=== PATIENT | female | born 1990 | race Caucasian/White ===

== ENCOUNTER → 2019-04-07 | Outpatient (CLI) | payer MEDICAID ==
--- NOTE | 2019-04-07 13:34 | US ---
EXAMINATION TYPE: US transvaginal DATE OF EXAM: 04/07/2019 COMPARISON: NONE CLINICAL HISTORY: N83.20 Unspecified ovarian cysts. Pt states pelvic pain x 3 days TECHNIQUE: Transvaginal (TV). Transvaginal sonographic images of the pelvis were acquired. Date of LMP: 03/17/2019 EXAM MEASUREMENTS: Uterus: 8.2 x 3.1 x 4.9 cm Endometrial Stripe: 0.5 cm Right Ovary: 2.6 x 2.2 x 1.8 cm Left Ovary: 3.0 x 2.8 x 2.4 cm 1. Uterus: Anteverted wnl 2. Endometrium: wnl 3. Right Ovary: wnl 4. Left Ovary: small cyst= 1.7 x 1.5 x 1.6 cm 5. Bilateral Adnexa: wnl 6. Posterior cul-de-sac: wnl IMPRESSION: Left ovarian cyst may be functional in nature. Consider follow-up study in 6 weeks.
== END | disposition home or self-care (01) ==
LOC: RADUSWWP 12:55
PROVIDERS: ATTEND Obstetrics & Gynecology
DX: N83.202 Unspecified ovarian cyst, left side (principal)
CPT/HCPCS: 76830

== ENCOUNTER → 2021-03-27 | Outpatient (CLI) | payer MEDICAID ==
[2021-03-27 16:53] LABS: Chol/HDL Ratio 2.56 Ratio; LDL Cholesterol,Calculated 82.1 mg/dL (0.0-131.0)
== END | disposition home or self-care (01) ==
LOC: LABWHC1 09:45
PROVIDERS: ATTEND Obstetrics & Gynecology
DX: Z13.29 Encounter for screening for other suspected endocrine disorder (principal); Z13.21 Encounter for screening for nutritional disorder; Z13.220 Encounter for screening for lipoid disorders
CPT/HCPCS: 36415; 80061; 82306; 84439; 84443